=== PATIENT | female | born 1975 | race Caucasian/White ===

== ENCOUNTER 2018-07-06 08:37 | Emergency (ER) | payer BC ==
[2018-07-06 08:51] VITALS: BP 165/95
--- NOTE | 2018-07-06 10:01 | UC ---
Lower Extremity/Ankle HPI - HPI Summary HPI Summary: 42 you with tenderness under MTP joint of left foot for 24 hours. Patient has 2 jobs and stands on her feet for both of them. No previous episode of injury to this foot or ankle. - History of Current Complaint Chief Complaint: UCLowerExtremity Stated Complaint: L FOOT COMPLAINT Time Seen by Provider: 07/06/18 09:14 Hx Last Menstrual Period: 06/30/18 Pain Intensity: 6 - Allergies/Home Medications Allergies/Adverse Reactions: Allergies Allergy/AdvReac Type Severity Reaction Status Date / Time No Known Allergies Allergy Verified 07/06/18 08:51 PMH/Surg Hx/FS Hx/Imm Hx Previously Healthy: Yes GI/ History: Other - diverticulitis - Surgical History Surgical History: Yes Surgery Procedure, Year, and Place: kym 1991; csection 2001; colostomy post- diverticulitis 2010 and removal of stoma 3 mos later - Family History Known Family History: Positive: Other - cancer - Social History Occupation: Employed Full-time Lives: With Family - 7 children Alcohol Use: Weekly Substance Use Type: None Smoking Status (MU): Former Smoker Have You Smoked in the Last Year: No When Did the Patient Quit Smoking/Using Tobacco: 4 yrs ago Review of Systems All Other Systems Reviewed And Are Negative: Yes Constitutional: Positive: Negative Skin: Positive: Negative Eyes: Positive: Negative ENT: Positive: Negative Respiratory: Positive: Negative Cardiovascular: Positive: Negative Gastrointestinal: Positive: Negative Genitourinary: Positive: Negative Motor: Positive: Negative Neurovascular: Positive: Negative Musculoskeletal: Positive: Arthralgia, Edema, Myalgia - left foot Neurological: Positive: Negative Psychological: Positive: Negative Is Patient Immunocompromised?: No Physical Exam Triage Information Reviewed: Yes Appearance: Well-Appearing, Pain Distress - mild tenderness volar aspect distal left foot Vital Signs: Initial Vital Signs Temp 98 F 07/06/18 08:46 Pulse 74 07/06/18 08:46 Resp 16 07/06/18 08:46 BP 165/95 07/06/18 08:46 Pulse Ox 99 07/06/18 08:46 Eye Exam: Normal ENT Exam: Normal Dental Exam: Normal Neck exam: Normal Neck: Positive: Supple Respiratory Exam: Normal Respiratory: Positive: Chest non-tender, Lungs clear Cardiovascular Exam: Normal Cardiovascular: Positive: RRR, No Murmur Abdominal Exam: Normal Abdomen Description: Positive: Nontender, No Organomegaly Bowel Sounds: Positive: Present Musculoskeletal Exam: Normal Musculoskeletal: Positive: Edema @ - left foot, Other: - pain MTP joint, volar with palpation; increased pain with extension of first toe Neurological Exam: Normal Psychological Exam: Normal Skin Exam: Normal Lower Extremity Course/Dx - Differential Dx/Diagnosis Differential Diagnosis/HQI/PQRI: Fracture (Closed), Osteomyelitis, Sprain, Strain, Tendonitis Provider Diagnosis: Tendonitis of ankle or foot Discharge - Sign-Out/Discharge Documenting (check all that apply): Patient Departure All imaging exams completed and their final reports reviewed: Yes - Discharge Plan Condition: Stable Disposition: HOME Patient Education Materials: Tendinitis (ED) Forms: *Work Release Referrals: Roosevelt MORALES,June Baird [Primary Care Provider] - Additional Instructions: WE DISCUSSED: PLEASE SEEK CARE AT THE EMERGENCY DEPARTMENT IF SYMPTOMS WORSEN OR IF NEW SYMPTOMS DEVELOP. FOLLOW UP WITH YOUR PRIMARY CARE PHYSICIAN IF CONDITION CONTINUES BEYOND 3 DAYS WITHOUT IMPROVEMENT. YOUR DIAGNOSIS IS: TENDONITIS AT THE BOTTOM OF YOUR LEFT FOOT YOUR PRESCRIPTION RECOMMENDATION IS: NONE OTHER INSTRUCTIONS: WARM MOIST HEAT IN MORNING; ICE TO AREA DURING THE DAY; ELEVATE; LOPEZ. FOLLOW UP, NEEDED. "IF IT HURTS, DON'T DO IT." DECREASE STANDING; NO WORK TOMORROW. Hypertension Discharge Instructions: Your blood pressure INDICATED HYPERTENSION. Follow-up with your primary care provider within 4 weeks for blood pressure check and appropriate recommendations and treatment, as needed. For pain: Ibuprofen (Motrin and other brand names) 400-600mg PLUS acetaminophen (Tylenol and other brand names) 500mg - 1000mg every 8 hours. Maximum is 3 doses a day. If this dosage is required for more than 5 days, you should re-check with your doctor. The combination of these two over-the- counter medications can be more effective than each one taken alone. Please check with the pharmacist if you have questions about your allergies to these medications. CALL [phone] for physician referrral. - Billing Disposition and Condition Condition: STABLE Disposition: Home
== END 2018-07-06 10:16 | disposition home or self-care (01) ==
LOC: UCEAST 08:37
DX: M77.52 Other enthesopathy of left foot and ankle (principal); Z87.891 Personal history of nicotine dependence
CPT/HCPCS: 99212; G0463

== ENCOUNTER 2018-12-18 17:22 | Emergency (ER) | payer BC ==
[2018-12-18 17:45] VITALS: BP 129/88
--- NOTE | 2018-12-18 18:03 | UC ---
Abdominal Pain Female HPI - HPI Summary HPI Summary: This patient is a 43-year-old female presents to the urgent care with a chief complaint of having nausea, vomiting, diarrhea and left-sided abdominal pain. Patient reports that the symptoms have been present for the last 4 days and the symptoms are worsening. She reports that she's been weak, fatigued, and the pain didn't subside is increasing. She has history of diverticulitis and peritonitis as well as abdominal surgery. She denies any fevers or chills. She denies any recent traveling, denies any antibiotic use, or sick contacts. - History of Current Complaint Chief Complaint: UCAbdominalPain Stated Complaint: STOMACH PROBLEMS Time Seen by Provider: 12/18/18 17:50 Hx Obtained From: Patient Hx Last Menstrual Period: 3 wks ago Onset/Duration: Gradual Onset Severity Initially: Mild Severity Currently: Moderate Pain Intensity: 4 Allergies/Adverse Reactions: Allergies Allergy/AdvReac Type Severity Reaction Status Date / Time No Known Allergies Allergy Verified 12/18/18 17:46 Home Medications: Home Medications NK [No Home Medications Reported] 12/18/18 [History Confirmed 12/18/18] PMH/Surg Hx/FS Hx/Imm Hx Previously Healthy: Yes - Surgical History Surgical History: Yes Surgery Procedure, Year, and Place: kym 1991; csection 2001; colostomy post- diverticulitis 2010 and removal of stoma 3 mos later - Family History Known Family History: Positive: Other - cancer - Social History Alcohol Use: Occasionally Substance Use Type: None Smoking Status (MU): Light Every Day Tobacco Smoker Have You Smoked in the Last Year: No When Did the Patient Quit Smoking/Using Tobacco: 4 yrs ago Review of Systems All Other Systems Reviewed And Are Negative: Yes Constitutional: Positive: Negative Skin: Positive: Negative Eyes: Positive: Negative ENT: Positive: Negative Respiratory: Positive: Negative Cardiovascular: Positive: Negative Gastrointestinal: Positive: Abdominal Pain, Vomiting, Diarrhea, Nausea Genitourinary: Positive: Negative Motor: Positive: Negative Neurovascular: Positive: Negative Musculoskeletal: Positive: Negative Neurological: Positive: Negative Psychological: Positive: Negative Is Patient Immunocompromised?: No Physical Exam - Summary Physical Exam Summary: VITAL SIGNS: Reviewed. GENERAL: Patient is a well developed and nourished female who is lying comfortably in the stretcher. Patient is not in any acute respiratory distress. HEAD AND FACE: No signs of trauma. No ecchymosis, hematomas or skull depressions. No sinus tenderness. EYES: PERRLA, EOMI x 2, No injected conjunctiva, no nystagmus. EARS: Hearing grossly intact. Ear canals and tympanic membranes are within normal limits. MOUTH: Oropharynx within normal limits. NECK: Supple, trachea is midline, no adenopathy, no JVD, no carotid bruit, no c- spine tenderness, neck with full ROM. CHEST: Symmetric, no tenderness at palpation LUNGS: Clear to auscultation bilaterally. No wheezing or crackles. CVS: Regular rate and rhythm, S1 and S2 present, no murmurs or gallops appreciated. ABDOMEN: Soft, non-tender. No signs of distention. No rebound no guarding, and no masses palpated. Bowel sounds are normal. EXTREMITIES: FROM in all major joints, no edema, no cyanosis or clubbing. NEURO: Alert and oriented x 3. No acute neurological deficits. Speech is normal and follows commands. SKIN: Dry and warm Triage Information Reviewed: Yes Appearance: Well-Appearing Vital Signs: Initial Vital Signs Temp 98.9 F 12/18/18 17:43 Pulse 93 12/18/18 17:43 Resp 12 12/18/18 17:43 BP 129/88 12/18/18 17:43 Pulse Ox 99 12/18/18 17:43 Vital Signs Reviewed: Yes Abd Pain Female Course/Dx - Course Course Of Treatment: Patient continues to have nausea vomiting diarrhea as well as worsening left- sided abdominal pain. The patient has history of diverticulitis and peritonitis as well as colectomy. Therefore I believe that the patient may benefit from further workup in the emergency department. Therefore the patient was referred to the ED. The patient declined ambulance transport. Patient is hemodynamically stable. She reports that she would be driving with her to the ER. - Differential Dx/Diagnosis Provider Diagnosis: Nausea vomiting and diarrhea, Abdominal pain Discharge - Sign-Out/Discharge Documenting (check all that apply): Patient Departure All imaging exams completed and their final reports reviewed: No Studies - Discharge Plan Condition: Stable Disposition: HOME Patient Education Materials: Abdominal Pain (ED) Referrals: Claudia Thomas MD [Primary Care Provider] - Additional Instructions: Patient will be discharged to the ED for further workup and management. The patient declined ambulance transfer. - Billing Disposition and Condition Condition: STABLE Disposition: Home
== END 2018-12-18 18:04 | disposition home health service (06) ==
LOC: UCEAST 17:22
DX: R10.9 Unspecified abdominal pain (principal); R19.7 Diarrhea, unspecified; R11.2 Nausea with vomiting, unspecified; F17.210 Nicotine dependence, cigarettes, uncomplicated
CPT/HCPCS: 99212; G0463

== ENCOUNTER 2018-12-18 18:18 | Emergency (ER) | payer BC ==
[2018-12-18] MEDS ORDERED: Morphine 4 MG/ML VIAL (1 ml) 4 MG/ML VIAL IV ONE (20:45)
[2018-12-18] MEDS ORDERED: Ondansetron INJ* 2 MG/ML VIAL IV ONE (20:45)
[2018-12-18] MEDS ORDERED: NS 0.9% 1000 ML** 2,000 ML IV ONE (20:45)
--- NOTE | 2018-12-18 20:50 | ED ---
Abdominal Pain/Female - HPI Summary HPI Summary: Pt is a 43 y/o F presenting to [facility] with her and a CC of LUQ abdominal pain since 12/14/18 which she states has no current severity. She states that she has associated diarrhea. She stated that she had a fever at onset. She denies any Chrons disease, and ulcerative colitis. She denies any vomiting, CP, headaches, current fevers, and sore throat. She stated no aggravating factors but stated that diarrhea helps with the pain. She has a PMHx of diverticulitis and had a colostomy about 7 years ago. - History of Current Complaint Chief Complaint: EDAbdPain Stated Complaint: ABD PAIN/DIARREHEA PER PT Time Seen by Provider: 12/18/18 20:27 Hx Obtained From: Patient Hx Last Menstrual Period: 3 wks ago ?: No Onset/Duration: Gradual Onset, Lasting Days - since , Still Present Timing: Constant Severity Initially: Moderate Severity Currently: None Pain Intensity: 0 Pain Scale Used: 0-10 Numeric Location: Discrete At: LUQ Aggravating Factor(s): Nothing Alleviating Factor(s): Other: - diarrhea Associated Signs and Symptoms: Positive: Diarrhea. Negative: Fever, Chest Pain , Nausea, Vomiting Allergies/Adverse Reactions: Allergies Allergy/AdvReac Type Severity Reaction Status Date / Time No Known Allergies Allergy Verified 12/18/18 17:46 Home Medications: Home Medications NK [No Home Medications Reported] 12/18/18 [History Confirmed 12/18/18] PMH/Surg Hx/FS Hx/Imm Hx Previously Healthy: Yes GI History: Reports: Hx Diverticulosis Sensory History: Denies: Hx Contacts or Glasses, Hx Legally Blind Opthamlomology History: Denies: Hx Contacts or Glasses, Hx Legally Blind - Cancer History Hx Chemotherapy: No Hx Radiation Therapy: No - Surgical History Surgery Procedure, Year, and Place: kym 1991; csection 2001; colostomy post- diverticulitis 2010 and removal of stoma 3 mos later - Immunization History Immunizations Up to Date: Yes Infectious Disease History: No Infectious Disease History: Reports: Hx of Known/Suspected MRSA Denies: Hx Clostridium Difficile, Hx Hepatitis, Hx Human Immunodeficiency Virus (HIV), Hx Shingles, Hx Tuberculosis, Hx Known/Suspected VRE, Hx Known/ Suspected VRSA, History Other Infectious Disease, Traveled Outside the [place] in Last 30 Days - Family History Known Family History: Positive: Other - cancer - Social History Alcohol Use: Weekly Hx Substance Use: No Substance Use Type: Reports: None Hx Tobacco Use: Yes Smoking Status (MU): Heavy Every Day Tobacco Smoker Have You Smoked in the Last Year: No Review of Systems Positive: Fever - at onset, denies current fever Negative: Sore Throat Negative: Chest Pain Positive: Abdominal Pain - LUQ, Diarrhea. Negative: Vomiting, Nausea Negative: Headache All Other Systems Reviewed And Are Negative: Yes Physical Exam - Summary Physical Exam Summary: VITAL SIGNS: Reviewed. GENERAL: Patient is a well-developed and nourished (MALE OR FEMALE) who is lying comfortable in the stretcher. Patient is not in any acute respiratory distress. HEAD AND FACE: No signs of trauma. No ecchymosis, hematomas or skull depressions. No sinus tenderness. EYES: PERRLA, EOMI x 2, No injected conjunctiva, no nystagmus. EARS: Hearing grossly intact. Ear canals and tympanic membranes are within normal limits. MOUTH: Oropharynx within normal limits. NECK: Supple, trachea is midline, no adenopathy, no JVD, no carotid bruit, no c- spine tenderness, neck with full ROM CHEST: Symmetric, no tenderness at palpation LUNGS: Clear to auscultation bilaterally. No wheezing or crackles. CVS: Regular rate and rhythm, S1 and S2 present, no murmurs or gallops appreciated. ABDOMEN: Soft, LLQ tenderness and hyperactive bowel sounds . No signs of distention. No rebound no guarding, and no masses palpated. EXTREMITIES: FROM in all major joints, no edema, no cyanosis or clubbing. NEURO: Alert and oriented x 3. No acute neurological deficits. Speech is normal and follows commands. SKIN: Dry and warm Triage Information Reviewed: Yes Vital Signs On Initial Exam: Initial Vitals Temp Pulse Resp BP Pulse Ox 97.7 F 88 18 124/93 97 12/18/18 18:25 12/18/18 18:25 12/18/18 18:25 12/18/18 18:25 12/18/18 18:25 Vital Signs Reviewed: Yes Diagnostics - Vital Signs Vital Signs Temp Pulse Resp BP Pulse Ox 12/18/18 20:24 97.7 F 92 16 123/94 97 12/18/18 18:25 97.7 F 88 18 124/93 97 - Laboratory Result Diagrams: 12/18/18 21:16 12/18/18 21:16 Lab Statement: Any lab studies that have been ordered have been reviewed, and results considered in the medical decision making process. - CT CT A/P CT Interpretation Completed By: Radiologist Summary of CT Findings: 1. Small bowel containing infraumbilical hernia. No obstruction or. strangulation. No additional findings to correlate with patient 's. symptomatology. 2. Left ovarian cysts. No followup imaging indicated per ACR guidelines. ED physician has reviewed this report. Abdominal Pain Fem Course/Dx - Course Course Of Treatment: This pt is a 43 y/o F presenting to [facility] with a CC of diarrhea and abdominal pain located in the LUQ since 12/14/18. She has a Hx of diverticulitis and had a colostomy about 7 years ago. Her PE found that she has LLQ tenderness and hyperactive bowel sounds. She received a CT A/P which showed 1. Small bowel containing infraumbilical hernia. No obstruction or strangulation. No additional findings to correlate with patient's. symptomatology. 2. Left ovarian cysts. No followup imaging indicated per ACR guidelines. She has anormalities in the following lab results: C reactive protein, AST, Alkaline Phosphatase, Amylase, Chloride, Carbon Dioxide. Her Urine tests showed abnormalities in specific gavity, protein, squamous epith cells, and hyaline casts. She will be discharged home with a Dx of diarrhea and instructed to return to the ED with any new or worsening symptoms. She will also be instructed to drink plenty of fluids for the course of her symptoms. - Diagnoses Provider Diagnoses: Diarrhea Discharge - Sign-Out/Discharge Documenting (check all that apply): Patient Departure - discharge Patient Received Moderate/Deep Sedation with Procedure: No - Discharge Plan Condition: Stable Disposition: HOME Patient Education Materials: Acute Diarrhea (ED) Referrals: Claudia Thomas MD [Primary Care Provider] - 2 Days Additional Instructions: Please return to the Emergency department for any new or worsening symptoms. Drink plenty of fluids during the course of your symptoms to prevent dehydration. Follow up with your primary care physician in 2-3 days. - Attestation Statements Document Initiated by Scribe: Yes Documenting Scribe: Aryan Rivera Provider For Whom Scribe is Documenting (Include Credential): Jennifer Elfar, MD Scribe Attestation: Aryan Wills, scribed for Jennifer Barahona MD on 12/18/18 at 2304. Status of Scribe Document: Ready
[2018-12-18 21:37] LABS: ABS Eosinophils 0.1 10^3/ul (0-0.6); ABS Lymphocytes 2.2 10^3/ul (1.0-4.8); ABS Monocytes 0.8 10^3/ul (0-0.8); ABS Neutrophils 3.7 10^3/ul (1.5-7.7); Eosinophil % 0.8 %; Hematocrit 49 % (35-47); Lymphocyte % 32.6 %; Mean Corpuscular HGB Conc 35 g/dL (31-36); Mean Corpuscular Hemoglobin 29 pg (27-31); Mean Corpuscular Volume 83 fL (80-97); Mean Platelet Volume 7.4 fL (7.4-10.4); Nucleated Red Blood Cells % 0.3; Platelet Count 200 10^3/uL (150-450); Red Blood Count 5.93 10^6 /uL (3.70-4.87); Red Cell Distribution Width 13 % (10-15); White Blood Count 6.8 10^3/uL (3.5-10.8)
[2018-12-18 21:40] LABS: Albumin 4.4 g/dL (3.2-5.2); Albumin/Globulin Ratio 1.1 (1-3); BUN/Creatinine Ratio 18.4 (8-20); C Reactive Protein 53.93 mg/L (<8.01); Calcium 9.6 mg/dL (8.6-10.3); EGFR African American 50.9 (>60); Globulin 3.9 g/dL (2-4); Magnesium 2.1 mg/dL (1.9-2.7); Potassium 3.2 mmol/L (3.5-5.0); Total Bilirubin 0.7 mg/dL (0.2-1.0); Total Protein 8.3 g/dL (6.4-8.9)
[2018-12-18 21:45] LABS: HCG Pregnancy 0.77 mIU/mL
[2018-12-18] MEDS ORDERED: Iodixanol* (CONTRAST) 320 MG/ML 100 ML SDV IV ONE (21:46)
[2018-12-18] MEDS ORDERED: Potassium Chlor TAB* 20 MEQ TAB.ER PO ONE (21:49)
[2018-12-18 23:36] LABS: Urine Appearance Clear; Urine Bacteria Absent (Absent); Urine Bilirubin Negative (Negative); Urine Blood Negative (Negative); Urine Color Yellow; Urine Glucose Negative (Negative); Urine Ketones Negative (Negative); Urine Nitrite Negative (Negative); Urine Protein 1+(30 mg/dL) (Negative); Urine Red Blood Cell Absent (Absent); Urine Specific Gravity 1.038 (1.010-1.030); Urine Squamous Epithelial Cell Present (Absent); Urine Urobilinogen Negative (Negative); Urine White Blood Cell Absent (Absent)
[2018-12-19] MEDS ORDERED: Diphenoxylat/Atrop 2.5-0.025M* 1 TAB PO ONE
[2018-12-19 00:50] VITALS: BP 135/82
== END 2018-12-19 00:48 | disposition home or self-care (01) ==
LOC: ED 18:18
DX: R19.7 Diarrhea, unspecified (principal); F17.210 Nicotine dependence, cigarettes, uncomplicated; K42.9 Umbilical hernia without obstruction or gangrene; N83.202 Unspecified ovarian cyst, left side
CPT/HCPCS: 36415; 74177; 80053; 81003; 81015; 82150; 83690; 83735; 84702; 85025; 86140; 96361; 96374; 96375; 99283; A9270-GY; J2270; J2405; Q9967